=== PATIENT | female | born 1945 | race African-American/Black ===

== ENCOUNTER → 2021-11-04 | Outpatient (CLI) | payer MEDICARE ==
--- NOTE | 2021-11-04 14:17 | RAD ---
CLINICAL HISTORY: Left thyroid nodule COMPARISON: Thyroid ultrasound from 10/20/2021 PROCEDURE: Preliminary sonographic images of the thyroid gland were obtained. Similar appearance of isoechoic l eft thyroid nodule. The procedure and risks of ultrasound guided aspiration were explained to the patient and informed wr itten consent obtained. Verification pause was observed. Laterality was confirmed. The site of aspi ration was marked. Using standard sterile technique, 4 25 G fine needle aspirations of the left thyroid nodule were obt ained. Under ultrasound guidance a single core needle biopsy of the thyroid nodule using a 20-gauge [employer] opsy device was obtained with a 1 cm throw. There were no immediate complications. The patient was observed in the radiology department for 30 minutes and released in satisfactory cond ition. IMPRESSION: Successful ultrasound-guided left thyroid nodule biopsy. Electronically signed by: Willian Aaron DO (11/04/2021 2:14 PM) [id number]
== END | disposition home or self-care (01) ==
LOC: US 11:53
PROVIDERS: ATTEND Family Medicine
DX: E04.1 Nontoxic single thyroid nodule (principal); Z79.899 Other long term (current) drug therapy
CPT/HCPCS: 10005; C1819